=== PATIENT | male | born 2005 | race Caucasian/White ===

== ENCOUNTER 2023-04-12 15:31 | Emergency (ER) | payer OTHER, SELFPAY ==
[2023-04-12 15:38] VITALS: BP 115/78; PULSE 84; RESP 19; TEMP 36.6; O2SAT 99
--- NOTE | 2023-04-12 15:42 | ED.GENADULT ---
HPI - General Adult General Chief complaint: Unspecified Stated complaint: took extra meds/well check Time Seen by Provider: 04/12/23 15:41 Source: patient Mode of arrival: ambulatory Limitations: no limitations History of Present Illness HPI narrative: 17-year-old male accidentally ingested a melatonin [address] of hydroxyzine 1 hour ago. The patient feels drowsy without any other complaints. Onset (ago): hour(s) ( 1 hour ago) Relieving factors: none Exacerbating factors: none Associated symptoms: denies other symptoms Treatments prior to arrival: none Related Data Home Medications Medication Instructions Recorded Confirmed hydroxyzine HCl 25 mg tablet 25 mg PO TID PRN Anxiety 04/12/23 04/12/23 Allergies Allergy/AdvReac Type Severity Reaction Status Date / Time Penicillins Allergy Rash Verified 04/12/23 15:49 Review of Systems Review of Systems: All systems reviewed & are unremarkable except as noted in HPI and below Constitutional: Constitutional: Reports as per HPI and Reports no additional constitutional complaints Eyes: Eyes: Reports as per HPI and Reports no additional eye complaints ENT: Reports system reviewed and no additional complaints, except as documented and Reports as per HPI Cardiovascular: Cardiovascular: Reports as per HPI and Reports no additional cardiovascular complaints Respiratory: Respiratory: Reports as per HPI and Reports no additional respiratory complaints Gastrointestinal: Gastrointestinal: Reports as per HPI and Reports no additional gastrointestinal complaints Genitourinary: Genitourinary: Reports no additional male genitourinary complaints Musculoskeletal: Musculoskeletal: Reports no additional musculoskeletal complaints and Reports as per HPI Integumentary/Breasts: Skin/Breast: Reports system reviewed and no additional complaints, except as docu and Reports as per HPI Neurologic: Reports system reviewed and no additional complaints, except as documented and Reports as per HPI Psychiatric: Psychiatric: Reports no additional psychiatric complaints and Reports as per HPI Endocrine: Endocrine: Reports no additional endocrine complaints and Reports as per HPI Hematologic/Lymphatic: Hematologic/Lymphatic: Reports no additional hematologic/lymphatic complaints and Reports as per HPI Allergic/Immunologic: Allergic/Immunologic: Reports no additional allergic/immunologic complaints and Reports as per HPI Exam Const: General: cooperative and healthy appearing HENMT: Head: normal to inspection and No palpable skull fracture present Ears: hearing grossly normal bilaterally and external ears normal Face/Nose/Sinus: Normal external nose present and Normal nares present Face and sinus: normal facial exam and sinuses nontender Mouth: Yes Normal oral and palatal mucosa present and Yes lip normal Teeth and gingiva: dentition normal Eyes: General: appearance normal, both eyes and all related structures Neck: Neck: normal visual inspection and full ROM Chest: Chest palpation & inspection: normal inspection of the chest Resp: Effort & Inspection: normal respiratory effort Auscultation: clear to auscultation bilaterally Cardio: Palpation: normal PMI Rate: regular rate Rhythm: regular rhythm Heart sounds: S1 normal heart sound present and S2 normal heart sound present GI: Inspection: normal to inspection Auscultation: normal bowel sounds : General: Yes no CVA tenderness Skin: General skin exam: normal color, no rashes or lesions noted and elasticity normal Neuro: General: oriented to person, oriented to place, oriented to time and patient oriented x3 Pupils: Normal pupillary reactivity/response: bilateral Extrem: General: normal to inspection, full ROM and capillary refill normal Right lower extremity: normal to inspection Psych: Appearance: grossly normal Mental Status: mental status grossly normal Speech and movement: Normal speech and movement presen
[2023-04-12 16:23] VITALS: BP 130/90; PULSE 88; RESP 20; TEMP 36.7; O2SAT 98
== END 2023-04-12 16:30 | disposition home or self-care (01) ==
PROVIDERS: Emergency Provider Internal Medicine Critical Care Medicine
DX: T65.891A Toxic effect of other specified substances, accidental (unintentional), initial encounter (principal); Z79.899 Other long term (current) drug therapy
CPT/HCPCS: 99281

== ENCOUNTER 2023-06-13 14:54 | Emergency (ER) | payer SELFPAY ==
--- NOTE | ~2023-06-13 | XR_ITS ---
EXAMINATION: XR chest 2V DATE: 06/13/2023 15:38 INDICATION: Suicidal TECHNIQUE: frontal and lateral views of the chest were obtained. COMPARISON: None FINDINGS: The lungs are clear with no focal airspace opacities, pulmonary edema, pleural effusion or pneumothor ax. The cardiomediastinal silhouette is normal. Visualized bones and soft tissues are unremarkable. IMPRESSION: 1. Normal chest radiograph. Reviewed, dictated and finalized at location L. IMPRESSION: 1. Normal chest radiograph.
[2023-06-13 15:04] VITALS: BP 90/69; PULSE 122; RESP 18; TEMP 36.8; O2SAT 100
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
[2023-06-13 15:36] LABS: Basophils Absolute Auto 0.03 K/mm3 (0.00-0.10); Basophils Percent Auto 0.2 % (0.0-1.0); Eosinophils Absolute Auto 0.05 K/mm3 (0.02-0.50); Eosinophils Percent Auto 0.4 % (1.0-6.0); Hematocrit 47.4 % (40.0-54.0); Immature Granulocyte Absolute 0.04 K/mm3 (0.00-0.00); Immature Granulocyte Percent A 0.3 % (0.0-0.0); Lymphocytes Absolute Auto 1.11 K/mm3 (1.10-4.50); Lymphocytes Percent Auto 8.6 % (18.0-42.0); Mean Corpuscular HGB Conc 33.8 g/dL (32-36); Mean Corpuscular Volume 85.9 fL (78.0-102.0); Mean Platelet Volume 11.6 fl (8.7-11.0); Monocytes Absolute Auto 0.72 K/mm3 (0.10-0.90); Monocytes Percent Auto 5.6 % (2.0-11.0); Neutrophils Absolute Auto 10.89 K/mm3 (1.70-7.20); Neutrophils Percent Auto 84.9 % (50.0-70.0); Platelet Count Result 189 K/mm3 (150-420); Red Blood Count 5.52 M/mm3 (4.70-6.10); Red Cell Distribution Width 11.1 % (11.6-14.4); White Blood Count 12.8 K/mm3 (4.8-10.8)
[2023-06-13 16:13] LABS: Alanine Aminotransferase 14 U/L (16-63); Albumin Level 4.4 g/dL (3.4-5.0); Alkaline Phosphatase 102 U/L (46-116); Anion Gap 9 mmol/L (8-16); Aspartate Amino Transferase 31 U/L (15-37); Bilirubin,Total 0.7 mg/dL (0.00-1.00); Blood Urea Nitrogen 11 mg/dL (7-18); Calcium 9.4 mg/dL (8.5-10.1); Carbon Dioxide 30 mmol/L (21-32); Chloride 103 mmol/L (98-108); Estimated CRCL calculation 71 ml/min; Estimated Glomerular Filt Rate > 60; Glucose 96 mg/dL (70-99); Osmolality Calculated 293 mOsm/kg (285-295); Potassium 4.6 mmol/L (3.5-5.1); Sodium 142 mmol/L (136-145); Thyroid Stimulating Hormone 0.98 uIU/mL (0.36-3.74); Total Protein 7.7 g/dL (6.4-8.2)
[2023-06-13 16:14] LABS: Ethanol < 3 mg/dL (0-6)
[2023-06-13 16:23] LABS: Appearance Urine Clear (Clear); Bilirubin Urine 1+ (Negative); Blood Urine Negative (Negative); Color Urine Yellow (Yellow); Glucose Urine UA Negative (Negative); Ketones Urine 2+ (Negative); Leukocyte Esterase Ur Trace LEU/UL (Negative); Nitrate Urine Negative (Negative); Protein Urine 2+ (Negative); Specific Grav Ur >= 1.030 (1.010-1.020)
[2023-06-13 16:32] LABS: Amphetamine Screen Urine Negative (Negative); Barbiturate Screen Urine Negative (Negative); Benzodiazepines Screen Urine Negative (Negative); Cannabinoid Screen Urine Negative (Negative); Cocaine Screen Urine Negative (Negative); Methadone Screen Urine Negative (Negative); Opiate Screen Urine Negative (Negative); Phencyclidine Screen Urine Negative (Negative)
[2023-06-13 16:45] LABS: Add Urine Microscopic? YES
[2023-06-13 16:46] LABS: Bacteria Urine Trace /hpf; RBC Urine 0-2 /hpf (0-2); Squamous Epithelial Cell Urine Rare /hpf (Few); WBC Urine 0-3 /hpf (0-3)
--- NOTE | 2023-06-13 17:19 | PC.NURSE ---
[facility] [place] states they will be admitting the patient involuntarily. They states that they will start working on placement, and that it may take a while due to their current list of evaluations they have pending.
--- NOTE | 2023-06-13 17:28 | PC.NURSE ---
Pt Aunt, Brinda Alarcon called to check on the patient. Pt states that he does not want any information relayed to his family at this time. Pt aunt aware and states that she would like staff to be aware of his complete medical history, including the patient's history of anxiety, depression, ADHD, schizophrenia, and multiple personality disorder. She states that he has at least three different personalities, some of which can be very violent and aggressive. She also notes that he has had multiple psychiatric admissions in the past, most recently in [place], [place] and [place], [place]. She left her phone number in case the patient changes his mind and would like us to contact her.
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
[2023-06-13] MEDS: LORazepam (*CRX) 0.5 MG TABLET 2 MG PO (17:54)
[2023-06-13 18:01] VITALS: BP 105/85; PULSE 90; TEMP 36.8; O2SAT 98
[2023-06-13] MEDS: HALOPERIDOL LACTATE 5 MG/ML VIAL IM (19:57)
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
--- NOTE | 2023-06-13 20:26 | PC.NURSE ---
RN to bedside to administer zofran and ativan. Pt now calm, and resting quietly. MD aware and states we can hold meds for now.
[2023-06-13 20:31] VITALS: PULSE 93; RESP 16; O2SAT 95
--- NOTE | 2023-06-13 20:46 | PC.NURSE ---
Called [facility] for an update on patient placement. They state that [facility] will not have any beds available until the morning, that they are waiting to hear back from [facility] in [place], and that [facility] does not have anything available at this time.
[2023-06-13 22:14] VITALS: PULSE 72; RESP 16; O2SAT 97
--- NOTE | 2023-06-13 22:17 | PC.NURSE ---
Spoke with Carri with [facility]. She states that [facility] has declined the patient, [facility] will not be able to take the pt until after 0700 tomorrow AM, and that we are still waiting to hear back from [facility] in
[2023-06-13 23:26] VITALS: PULSE 71; RESP 16; O2SAT 96
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
--- NOTE | 2023-06-14 00:01 | PC.NURSE ---
This RN spoke with Carri from [facility] to update her on [facility]'s deferral of the patient at this time. She states that we will wait to see if [facility] is able to accept the patient first thing in the morning. Otherwise, they will start looking for placement towards [place]
[2023-06-14 01:02] VITALS: PULSE 61; RESP 16; TEMP 37.1; O2SAT 94
[2023-06-14 01:29] VITALS: BP 105/72; PULSE 96; RESP 16; O2SAT 96
[2023-06-14 05:19] VITALS: BP 123/73; PULSE 84; RESP 18; TEMP 37; O2SAT 99
[2023-06-14 08:05] VITALS: BP 128/71; PULSE 79; RESP 16; TEMP 36.9; O2SAT 97
[2023-06-14] MEDS: ACETAMINOPHEN 325 MG TABLET 650 MG PO (09:33)
[2023-06-14 09:53] VITALS: BP 108/79; PULSE 92; RESP 16; O2SAT 98
[2023-06-14 10:09] LABS: Influenza A QL RT-PCR Negative (Negative); Influenza B QL RT-PCR Negative (Negative); RSV RNA, RT-PCR Negative (Negative); SARS-CoV-2 RNA PCR Negative (Negative)
--- NOTE | 2023-06-14 10:35 | PC.NURSE ---
erp reviewed pt case and agrees to release pt to police custody for completion of 72 hour suicide watch. per [place] screen pt may be released to general population at that time...see [address] screening tool.
== END 2023-06-14 10:54 ==
PROVIDERS: Emergency Medicine; Emergency Provider Internal Medicine Critical Care Medicine
DX: R45.6 Violent behavior (principal); Z20.822 Contact with and (suspected) exposure to COVID-19
CPT/HCPCS: 36415; 71046; 80053; 80307; 84443; 85025; 87637; 96372; 99284; A9270; J1630